=== PATIENT | male | born 1960 | race Caucasian/White ===

== ENCOUNTER 2016-11-30 08:46 | Day surgery (SDC) | payer OTHER ==
[~2016-11-30] VITALS: Ht 182.9 cm; Wt 91.4 kg
[2016-11-30] VITALS (13 sets, daily range): BP systolic 124–145; BP diastolic 80–92; PULSE 72–98; RESP 18–41; Ht 182.9 cm; Wt 91.4 kg
--- NOTE | 2016-11-30 07:07 | HPN ---
Date/Time of Note Date/Time of Note DATE: 11/30/16 TIME: 07:07 Interval H&P Admission Note Pt. seen H&P reviewed: No system changes GAURAV BRADLEY D.O. Nov 30, 2016 07:07
[~2016-11-30 08:46] MED LIST: ACYC800T57 PO; AMOX1TAB10 PO; BALANCED SALT SOLN 15 ML OPH IRRIG ONE; CEFAZOLIN 1 GM INJ ONE; DICLOFENAC 0.1% 2.5 ML OPH OPER SCH; GLIP5TAB13 PO; HYDR-906 PO; LACTATED RINGER'S 1,000 ML IV SCH; LIDOCAINE 3.5% GEL TUBE OPER ONE; METF1000 PO; MOXIFLOXACIN 0.5% 3 ML OPH OPER SCH; OFLO5DRO7 RIGHT EAR; PRED20TA PO; TETRACAINE 0.5% 4 ML OPH OPER SCH; TRAM-40 PO
[2016-11-30] MEDS ORDERED: TOBRAMYCIN/DEXAMETH 3.5 GM OPH OINT ONE (09:25)
[2016-11-30] MEDS ORDERED: LIDOCAINE 2%/EPI 30 ML INJ ONE (09:25)
[2016-11-30] MEDS ORDERED: LIDOCAINE 3.5% GEL TUBE ONE (09:29)
[2016-11-30] MEDS ORDERED: GLIP-95 PO (09:35)
[2016-11-30] MEDS ORDERED: FENTAnyl 50 MCG/ML VIAL ONE (10:11)
[2016-11-30] MEDS ORDERED: MIDAZOLAM 1 MG/ML 2 ML INJ ONE (10:11)
[2016-11-30] MEDS ORDERED: LIDOCAINE 2%/EPI (MDV) 20ML INJ INJ ONE (10:20)
[2016-11-30] MEDS ORDERED: MIDAZOLAM 1 MG/ML 2 ML INJ IV PRN (11:00)
[2016-11-30] MEDS ORDERED: ONDANSETRON 4 MG INJ IV PRN (11:00)
[2016-11-30] MEDS: morphine (1 MG/ML) 10ML SYRINGE IV PRN ×2 (12:02→12:09)
[2016-11-30] MEDS ORDERED: HYDROCODONE/APAP (5/325) TAB PO ONE (12:30)
--- NOTE | 2016-11-30 23:12 | OPR ---
DATE OF OPERATION: 11/30/2016 SURGEON: Dr. Gaurav Forrest ANESTHESIOLOGIST: Dr. Yosi Doshi PREOPERATIVE DIAGNOSIS: Ectropion, right eye. POSTOPERATIVE DIAGNOSIS: Ectropion, right eye. PROCEDURE PLANNED: Ectropion repair, right eye. PROCEDURE PERFORMED: Ectropion repair, right eye. ANESTHESIA: MAC. CONSENT: The patient was given detailed explanation of possible options for his condition. 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 The patient was explained possible complications which include but not limited to infection, bleeding, u nder-correction, over-correction, scar formation, vision impairment, decrease of vision or loss of v ision or loss of the eye as an organ. The patient understood. All explanation was given in [place] twice, once at office, once at the hospital. The patient understood. All questions were answered. The patient signed the consent, can be found in his chart. DESCRIPTION OF PROCEDURE: The patient brought to operating room in stable condition, placed on oper ating table in supine position, and right eye was prepped in routine sterile technique for eye surge ry. Then ____ lidocaine with epinephrine was injected into lower lid prior to ____ performed on low er eyelid in order to do lateral tarsal strip procedure reattachment. Then hemostat was placed on l ateral canthus for few minutes, which was followed by horizontal incision of lateral canthus, and th en lateral tarsal strip was released from the skin and from the underlying tissue and scraped, used blade #11. The temporal part of the tarsal strip about 2 to 3 mm was removed, excised with Kimberley scissors and 5-0 double-armed suture used to attach lateral tarsal strip to periosteum with 2 sutur es. During the procedure, ____ was achieved by using Bovie cautery, then 6-0 Vicryl suture used to reattach old tissue and create lateral canthus. Then skin was closed with 8-0 Vicryl suture, and To braDex ointment was applied to the wound, and the patient was transferred to recovery room in stable condition. Dictated By: GAURAV GONZALEZ/ESTELA Conf#: [id number] DID#: [id number]
== END 2016-11-30 13:51 | disposition home or self-care (01) ==
LOC: SDS 08:46
PROVIDERS: ATTEND Ophthalmology
DX: H02.102 Unspecified ectropion of right lower eyelid (principal); H16.291 Other keratoconjunctivitis, right eye; E11.9 Type 2 diabetes mellitus without complications; E66.3 Overweight; Z68.27 Body mass index [BMI] 27.0-27.9, adult
CPT/HCPCS: 67917; 82962; J0690; J2250; J2270; J2405; J3010; Z7512; Z7610

== ENCOUNTER 2017-06-15 18:24 | Emergency (ER) | payer OTHER ==
[~2017-06-15] VITALS: Ht 182.9 cm; Wt 90.5 kg
[~2017-06-15 18:24] MED LIST changes: -ACYC800T57 PO; -AMOX1TAB10 PO; -BALANCED SALT SOLN 15 ML OPH IRRIG ONE; -CEFAZOLIN 1 GM INJ ONE; -DICLOFENAC 0.1% 2.5 ML OPH OPER SCH; +GLIP-95 PO; -GLIP5TAB13 PO; -LACTATED RINGER'S 1,000 ML IV SCH; -LIDOCAINE 3.5% GEL TUBE OPER ONE; -MOXIFLOXACIN 0.5% 3 ML OPH OPER SCH; -OFLO5DRO7 RIGHT EAR; -PRED20TA PO; -TETRACAINE 0.5% 4 ML OPH OPER SCH
[2017-06-15 18:40] VITALS: Ht 182.9 cm; Wt 90.5 kg
[2017-06-15] MEDS ORDERED: CEPH-443 PO (20:42)
--- NOTE | 2017-06-15 20:56 | ERD ---
ER Documentation Chief Complaint Date/Time DATE: 06/15/17 TIME: 20:50 Chief Complaint right foot pain HPI This is a 57-year-old male presents to the ER with a blister to his right big toe. Patient denies any pain he denies any trauma he denies any fevers or chills. Patient has a past medical history of diabetes and is worried because he had a foot ulcer in the past and it was very hard for him to heal. 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 ROS 12 point review of systems was done, all negative except per HPI. Medications Home Meds Active Scripts Cephalexin* (Keflex*) 500 Mg Capsule, 500 MG PO BID for 7 Days, CAP Prov:JULIO GOTTLIEB 06/15/17 Hydrocodone/Acetaminophen ([place] 5-325 Tablet) 1 Each Tablet, 1 TAB PO Q6H Y for PAIN, #20 TAB Prov:RADHA MARTIN DO 06/04/16 Reported Medications Glipizide* (Glipizide*) 10 Mg Tablet, 10 MG PO BID, TAB 11/30/16 Tramadol Hcl* (Ultram*) 50 Mg Tablet, 50 MG PO Q6H Y for PAIN, TAB 06/04/16 Metformin Hcl* (Metformin Hcl*) 1,000 Mg Tablet, 1000 MG PO WITH BREAKFAST DINNE , #60 TAB 06/04/16 Allergies Allergies: Coded Allergies: No Known Allergy (Unverified , 11/30/16) PMhx/Soc Medical and Surgical Hx: pt denies Surgical Hx History of Surgery: No Anesthesia Reaction: No Hx Neurological Disorder: No Hx Respiratory Disorders: No Hx Cardiac Disorders: No Hx Psychiatric Problems: No Hx Miscellaneous Medical Probl: Yes (L Foot Ulcer,Otitis Media) Hx Alcohol Use: No Hx Substance Use: No Hx Tobacco Use: No Smoking Status: Never smoker Physical Exam Vitals Vital Signs Date Time Temp Pulse Resp B/P Pulse Ox O2 Delivery O2 Flow Rate FiO2 06/15/17 18:40 97.8 86 19 132/75 98 Physical Exam GENERAL: The patient is well developed and appropriate for usual state of health , in no apparent distress. HEENT: Atraumatic CHEST: Clear to auscultation bilaterally. There are no rales, wheezes or rhonchi. HEART: Regular rate and rhythm. No murmurs, clicks, rubs or gallops. EXTREMITIES: Patient has a blister to the right first digit. There is no purulent discharge, no surrounding erythema areas not tender to palpation. +2 pulses. Normal capillary refill normal range of motion of the ankle and foot.Patient does have some decreased sensation to his foot secondary to diabetic neuropathy. NEURO: Alert and oriented. Procedures/MDM This is a 57-year-old male presents to the ER with a blister to his right big toe. At this time blister has not ruptured, there is no erythema, warmth to the touch or discharge. Patient however is diabetic, and is at greater foot ulcerations. He will be treated with Keflex. At this time suspicion for cellulitis, deep space infection, osteomyelitis is low. Patient is afebrile and extremely well-appearing. Needs to follow-up with his primary care doctor within 1-2 days or return to ER sooner if symptoms worsen. My medical decision making shared with the patient understands and agrees with plan. Departure Diagnosis: Primary Impression: Blister of foot Condition: Stable Patient Instructions: Diabetic Foot Care Additional Instructions: Llame al doctor MAX y jossy jewel DEON PARA DENTRO DE 1-2 FERRER.Dgale a la secretaria que nosotros le instruimos hacer esta deon.Avise o llame si knight condicin se empeora antes de la deon. Regresa aqui si peor o no mejor. JULIO GOTTLIEB Jun 15, 2017 20:56
== END 2017-06-15 20:59 | disposition home or self-care (01) ==
LOC: FTE 18:24
DX: R23.8 Other skin changes (principal); Z79.84 Long term (current) use of oral hypoglycemic drugs
CPT/HCPCS: 99283

== ENCOUNTER 2017-09-28 18:25 | Emergency (ER) | END 2017-09-29 00:24 | disposition home or self-care (01) ==

== ENCOUNTER 2017-12-08 15:52 | Emergency (ER) | END 2017-12-08 21:11 | disposition home or self-care (01) ==